=== PATIENT | male | born 1940 | race Caucasian/White ===

== ENCOUNTER 2016-06-27 10:41 | Day surgery (SDC) | payer MEDICARE ==
--- NOTE | ~2016-06-27 | EGD ---
EGD REPORT [facility] [address] [address] NAME: DEYVI LOCKWOOD : 40 STATUS : REG [facility] PAT#: [id number] AGE: 75 ADM/REG DATE : 06/27/16 MR#: [id number] REPORT SERV DATE: 06/27/16 DICTATED BY: ANDRADE GUPTA DATE: 06/27/16 REPORT STATUS : Draft TRANSCRIBED BY: [facility] DATE: 06/27/16 Endoscopy Center Patient Name: Deyvi Lockwood Date of : 1940 Attending MD: DANIELITO GUPTA MD Procedure Date No Time: 06/27/2016 Procedure: Upper GI endoscopy Indications: Follow-up of Triana's esophagus, Abnormal PET scan of the GI tract, Gastric lining lighting up when PET done for lung mass Referring MD: CRISTOBAL GARG Medicines: See the Anesthesia note for documentation of the administered medications Complications: No immediate complications. Estimated blood loss: Minimal. Procedure: Pre-Anesthesia Assessment: - ASA Grade Assessment: III - A patient with severe systemic disease. - Prior to the procedure, a History and Physical was performed, and patient medications and allergies were reviewed. The patient's tolerance of previous anesthesia was also reviewed. The risks and benefits of the procedure and the sedation options and risks were discussed with the patient. All questions were answered, and informed consent was obtained. Prior Anticoagulants: The patient has taken no previous anticoagulant or antiplatelet agents. After reviewing the risks and benefits, the patient was deemed in satisfactory condition to undergo the procedure. After obtaining informed consent, the endoscope was passed under direct vision. Throughout the procedure, the patient's blood pressure, pulse, and oxygen saturations were monitored continuously. The GIF IT Q160 [id number] was introduced through the mouth, and advanced to the second part of duodenum. The upper GI endoscopy was accomplished without difficulty. The patient tolerated the procedure well. Findings: The examined duodenum was normal. The entire examined stomach was normal. Biopsy with a cold jumbo forceps was performed for histology. The cardia and gastric fundus were normal on retroflexion. There were esophageal mucosal changes consistent with long-segment Triana's esophagus present in the lower third of the esophagus. The EGD REPORT [address] [address] NAME: DEYVI LOCKWOOD : 40 STATUS : REG [facility] PAT#: [id number] AGE: 75 ADM/REG DATE : 06/27/16 MR#: [id number] REPORT SERV DATE: 06/27/16 DICTATED BY: ANDRADE GUPTA DATE: 06/27/16 REPORT STATUS : Draft TRANSCRIBED BY: [employer] DATE: 06/27/16 maximum longitudinal extent of these mucosal changes was 6 cm in length. Mucosa was biopsied with a cold forceps for histology in 4 quadrants at intervals of 2 cm in the lower third of the esophagus. A total of 4 specimen bottles were sent to pathology. Impression: - Normal examined duodenum. - Normal stomach. Biopsied. - Esophageal mucosal changes consistent with long-segment Triana's esophagus. Biopsied. Recommendation: - Patient has a contact number available for emergencies. The signs and symptoms of potential delayed complications were discussed with the patient. Return to normal activities tomorrow. Written discharge instructions were provided to the patient. - Regular diet. - Discharge patient to home. - Continue present medications. - Await pathology results. - Repeat the upper endoscopy in 3 years for surveillance. Procedure Code(s): --- Professional --- 55450, Esophagogastroduodenoscopy, flexible, transoral; with biopsy, single or multiple Diagnosis Code(s): --- Professional --- K22.70, Triana's esophagus without dysplasia R93.3, Abnormal findings on diagnostic imaging of other parts of digestive tract CPT copyright 2013 [employer]. All rights reserved. The codes documented in this report are preliminary and upon celebrity chef entrepreneur media personality review may be revised to meet current compliance requirements. DANIELITO GUPTA MD 06/27/2016 12:27 PM This report has been signed electronically. Number of Addenda: 0 Note Initiated On: 06/27/2016 11:57 AM Scope Withdrawal Time 0 hours 0 minutes 0 seconds [id number] [id number]
[~2016-06-27 10:41] MED LIST: AMARYL4 PO; ASA5GR PO; ASAB PO; ASCRIPTIN PO; CLARIT10 PO; CORDARONE PO; CRESTOR10 PO; CYANO1000T PO; DIABETA5 PO; FISH-EPA1000 MG PO; FLONASE NAS; FOLIC PO; Folic Acid PO; GLUCOPHAGE1000 MG PO; HYDROCHLOROT25 MG PO; LIPITOR20 PO; LOTE20 PO; LOTENSIN HCT1 TA1 PO; PLAVIX PO; POLY-IRON PO; PRILO PO; STARLIX120 PO; STARLIX60 PO; TOPXL100 PO; TOPXL50 PO; TRAVATAN Z0.004 % OPH; TRICOR145 PO; [UNRECOGNIZED DRUG - REMARK] PO; [UNRECOGNIZED DRUG - REMARK] PO
== END 2016-06-27 23:59 | disposition home or self-care (01) ==
LOC: DMU 10:41
PROVIDERS: Internal Medicine Gastroenterology
PROC: 0DB38ZX Excision of Lower Esophagus, Via Natural or Artificial Opening Endoscopic, Diagnostic (ICD-10-PCS; 2016-06-27)
PROC: 0DB68ZX Excision of Stomach, Via Natural or Artificial Opening Endoscopic, Diagnostic (ICD-10-PCS; principal; 2016-06-27 13:00)
DX: K22.70 Barrett's esophagus without dysplasia (principal); D64.9 Anemia, unspecified; R93.3 Abnormal findings on diagnostic imaging of other parts of digestive tract; F17.210 Nicotine dependence, cigarettes, uncomplicated; I73.9 Peripheral vascular disease, unspecified; E78.00 Pure hypercholesterolemia, unspecified; I10 Essential (primary) hypertension; K21.9 Gastro-esophageal reflux disease without esophagitis; E11.9 Type 2 diabetes mellitus without complications; F32.9 Major depressive disorder, single episode, unspecified; F41.9 Anxiety disorder, unspecified; I25.10 Atherosclerotic heart disease of native coronary artery without angina pectoris; Z95.1 Presence of aortocoronary bypass graft; Z88.0 Allergy status to penicillin; Z79.899 Other long term (current) drug therapy; Z79.82 Long term (current) use of aspirin; Z79.51 Long term (current) use of inhaled steroids
CPT/HCPCS: 82962; 88305

== ENCOUNTER 2016-07-03 06:23 | Inpatient (IN) | payer MEDICARE ==
[2016-06-28 14:21] LABS: BASOPHILS 0.3 %; BASOPHILS ABSOLUTE 0.02 10/3/uL (0.0-0.16); EOSINOPHILS 3.1 %; EOSINOPHILS ABSOLUTE 0.22 10/3/uL (0.0-0.53); HEMATOCRIT 31.6 % (40.0-51.0); HEMOGLOBIN 9.8 g/dL (13.6-17.8); IMMATURE GRANULOCYTES 0.1 %; IMMATURE GRANULOCYTES ABSOLUTE 0.01 10/3/uL (0.0-0.11); LYMPHOCYTES 26.1 %; LYMPHOCYTES ABSOLUTE 1.88 10/3/uL (0.67-4.30); MEAN CORPUSCULAR HEMOGLOB 25.4 pg (26.0-34.0); MEAN CORPUSCULAR VOLUME 81.9 fL (80-100); MEAN PLATELET VOLUME 8.5 fL (9.2-13.0); MONOCYTES ABSOLUTE 0.43 10/3/uL (0.21-1.20); NEUTROPHILS 64.4 %; NEUTROPHILS ABSOLUTE 4.63 10/3/uL (2.02-8.40); PLATELET COUNT 274 10/3/uL (150-400); RBC DISTRIBUTION WIDTH 15.5 % (12.0-16.0); RED CELL COUNT 3.86 10/6/uL (4.7-6.1); WHITE BLOOD CELLS 7.2 10/3/uL (4.5-10.5)
[2016-06-28 14:22] LABS: MANUAL DIFF NO %
[2016-06-28 14:31] LABS: BUN (BLOOD UREA NITROGEN) 20 MG/DL (6-23); CALCIUM, SERUM 8.4 MG/DL (8.5-10.4); CHLORIDE, SERUM 103 MMOL/L (96-112); CO2 (CARBON DIOXIDE) 29 MMOL/L (24-34); CREATININE 1.59 MG/DL (0.70-1.30); GFR AFRICAN AMERICAN 48 ML/MIN (>=60); GFR NON AFRICAN AMERICAN 42 ML/MIN (>=60); INTERNATIONAL NORMAL RATI 1.1 UNITS (-); POTASSIUM, SERUM 4.4 MMOL/L (3.5-5.3); PROTIME (NOT ORD) 13.9 SEC (12.0-14.5); SODIUM, SERUM 138 MMOL/L (135-148)
[2016-06-28 14:32] LABS: GLUCOSE, SERUM 159 MG/DL (60-99)
[2016-06-28 15:28] LABS: ASCORBIC ACID (UR NOT ORDER) NEG (NEG); BILIRUBIN, URINE NEGATIVE (NEG); KETONE, URINE NEGATIVE (NEG); LEUKOCYTE ESTERASE(NOT OR NEG (NEG); WBC (NOT ORDERED) (RFLEX) 2 (0-5)
--- NOTE | ~2016-07-03 | OP ---
Record Of Operation [facility] [address] [place]. [address] NAME: DEYVI LOCKWOOD : 40 STATUS : ADM IN PAT#: [id number] AGE: 75 ADM/REG DATE : 07/03/16 MR#: [id number] REPORT SERV DATE: 07/03/16 DICTATED BY: JOSUÉ BARBOZA JR. 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 NAME OF OPERATION: Bronchoscopy, right thoracoscopy with right lower lobectomy with en bloc resection of central portion of right hemidiaphragm, major fissure, and segments of right upper and middle lobes; primary closure of right hemidiaphragm; complete mediastinal lymph node dissection, julianna stations 7, 9, 11R; and intercostal nerve block. SURGEON: Josué Barboza M.D. RESIDENT SURGEON: Ronald Izquierdo MD. CORK GRINDER: Jesse Cerna. ANESTHESIA: General endotracheal. FINDINGS: The patient was noted to have extremely large tumor occupying the right lower lobe. It was adherent to the diaphragm with suspicion of the tumor possibly involving the right hemidiaphragm. We could not separate the two safely, so we took a section of right hemidiaphragm full-thickness. It was repaired primarily with Ethibond sutures. The tumor also appeared to be involving the fissure. We took the major fissure with segments of the middle lobe with portions of the middle lobe and right upper lobe attached to it to ensure adequate margins. The lung had a generalized fibrotic nature to it. Mediastinal lymph nodes were enlarged but did not have any obvious striking features to them. Final pathology is pending, but gross inspection demonstrated our margins to be widely free of tumor. DETAILS OF OPERATION: After adequate general anesthesia, the patient was intubated. Bronchoscopy was performed noting no endobronchial lesions. There were no contraindications to resection. Mucus secretions were evacuated. A left-sided double-lumen endotracheal tube was then placed. The patient was then positioned in the left lateral decubitus position and the right chest was prepped and draped in routine sterile fashion. A small incision was made overlying the lower intercostal space. A separate anterior trocar incision was also made. Through these two incision sites, above findings were noted. The tumor was not invading the chest wall, but was invading the hemidiaphragm. We eventually felt that we could not separate the two, so we took a section of the diaphragm with the tumor. This was primarily repaired with Ethibond suture in a horizontal mattress fashion. Multiple Record Of Operation [place] [id number] [facility] [place]. [address] NAME: DEYVI LOCKWOOD : 40 STATUS : ADM IN [facility]#: [id number] AGE: 75 ADM/REG DATE : 07/03/16 MR#: [id number] REPORT SERV DATE: 07/03/16 DICTATED BY: JOSUÉ BARBOZA JR. DATE: 07/03/16 REPORT STATUS : Draft TRANSCRIBED BY: VIVIANE DATE: 07/03/16 interrupted sutures were required. Cor-Knot was used to secure the sutures. Attention was then placed to the inferior pulmonary ligament, where it was taken down. The inferior pulmonary vein was identified along with superior pulmonary vein. The inferior pulmonary vein was transected with a vascular stapler. The bronchus was identified, dissected out, and divided with a RADHA stapler. Tumor appeared to be involving possibly the fissure. It was not well defined. There was a lot of thickness and abnormalities in this region. We took a stapler across the middle and upper lobes, removing the entire fissure. Tissue reinforcements utilized across this entire staple line. Hemostasis was obtained. The specimen was removed through the anterior trocar site. We did have to spread the ribs to get the specimen out. It was extremely large. Gross inspection demonstrated margins to be negative. Lungs were reinflated, noting our staple line to be intact with adequate hemostasis. Nodes from the subcarinal, hilar, and inferior pulmonary ligament regions were removed. Intercostal nerve block was performed. A 32-[place] chest tube was then placed. Then, trocar incisions were closed with running Vicryl sutures. Skin was closed with running monofilament suture. A Dermabond dressing was applied. The procedure was terminated at this point. The patient tolerated the procedure well, and taken back to recovery room in stable condition. CEDRICK/VIVIANE Josué Barboza Jr., M.D. / [id number] CC: Dorita Alejandro Jr., M.D. Glen Boyd, M.D. Chad E. Paxson, DO Alexander Stratienko, M.D.
[2016-07-03 13:07] LABS: BASOPHILS 0.3 %; BASOPHILS ABSOLUTE 0.04 10/3/uL (0.0-0.16); EOSINOPHILS 1.3 %; EOSINOPHILS ABSOLUTE 0.15 10/3/uL (0.0-0.53); HEMATOCRIT 31.5 % (40.0-51.0); HEMOGLOBIN 9.8 g/dL (13.6-17.8); IMMATURE GRANULOCYTES 0.3 %; IMMATURE GRANULOCYTES ABSOLUTE 0.03 10/3/uL (0.0-0.11); LYMPHOCYTES 18.9 %; LYMPHOCYTES ABSOLUTE 2.19 10/3/uL (0.67-4.30); MEAN CORPUS HGB CONC 31.1 g/dL (32.0-36.0); MEAN CORPUSCULAR HEMOGLOB 26.2 pg (26.0-34.0); MEAN CORPUSCULAR VOLUME 84.2 fL (80-100); MEAN PLATELET VOLUME 8.3 fL (9.2-13.0); MONOCYTES 1.9 %; MONOCYTES ABSOLUTE 0.22 10/3/uL (0.21-1.20); NEUTROPHILS 77.3 %; NEUTROPHILS ABSOLUTE 8.97 10/3/uL (2.02-8.40); PLATELET COUNT 272 10/3/uL (150-400); RBC DISTRIBUTION WIDTH 15.6 % (12.0-16.0); RED CELL COUNT 3.74 10/6/uL (4.7-6.1)
[2016-07-03 13:09] LABS: MANUAL DIFF NO %; WHITE BLOOD CELLS 11.6 10/3/uL (4.5-10.5)
[2016-07-03 13:19] LABS: BUN (BLOOD UREA NITROGEN) 20 MG/DL (6-23); CALCIUM, SERUM 8.2 MG/DL (8.5-10.4); CHLORIDE, SERUM 104 MMOL/L (96-112); CO2 (CARBON DIOXIDE) 28 MMOL/L (24-34); CREATININE 1.51 MG/DL (0.70-1.30); GFR AFRICAN AMERICAN 52 ML/MIN (>=60); GFR NON AFRICAN AMERICAN 45 ML/MIN (>=60); GLUCOSE, SERUM 212 MG/DL (60-99); POTASSIUM, SERUM 5.1 MMOL/L (3.5-5.3); SODIUM, SERUM 139 MMOL/L (135-148)
[2016-07-03 13:45] LABS: BE (BASE EXCESS) -5.5 MEQ/L (0 +/- 2.5); CARBOXYHEMOGLOBIN 0.8 % (0-3); HCO3 (ACTUAL BICARBONATE) 25.2 MEQ/L (23-27); HEMOBLOGIN CONTENT 11.2 G/DL (14-18); INSTRUMENT SERIAL # 8083; METHEMOGLOBIN 0.5 % (0-3); O2 CONTENT 15.7 VOL% (18-24); PCO2 (CO2 TENSION) 81 MMHG (35-45); PO2 (O2 TENSION) 157 MMHG (79-93); SAMPLE Arterial; pH 7.11 (7.37-7.43)
[2016-07-03 14:55] LABS: BE (BASE EXCESS) -2.4 MEQ/L (0 +/- 2.5); BIPAP 14/6 cm.H2O; CARBOXYHEMOGLOBIN 0.2 % (0-3); HCO3 (ACTUAL BICARBONATE) 22.7 MEQ/L (23-27); HEMOBLOGIN CONTENT 10.4 G/DL (14-18); INSTRUMENT SERIAL # 11843; METHEMOGLOBIN 0.4 % (0-3); O2 CONTENT 14.7 VOL% (18-24); OPERATOR ID 19104; PCO2 (CO2 TENSION) 40 MMHG (35-45); PO2 (O2 TENSION) 165 MMHG (79-93); SAMPLE Arterial; pH 7.37 (7.37-7.43)
[2016-07-04 05:54] LABS: BASOPHILS 0.1 %; BASOPHILS ABSOLUTE 0.01 10/3/uL (0.0-0.16); EOSINOPHILS 0 %; HEMOGLOBIN 8.4 g/dL (13.6-17.8); IMMATURE GRANULOCYTES 0.2 %; IMMATURE GRANULOCYTES ABSOLUTE 0.02 10/3/uL (0.0-0.11); LYMPHOCYTES 12.3 %; LYMPHOCYTES ABSOLUTE 1.17 10/3/uL (0.67-4.30); MEAN CORPUS HGB CONC 31.2 g/dL (32.0-36.0); MEAN CORPUSCULAR HEMOGLOB 25.5 pg (26.0-34.0); MEAN PLATELET VOLUME 8.7 fL (9.2-13.0); MONOCYTES ABSOLUTE 0.57 10/3/uL (0.21-1.20); NEUTROPHILS 81.4 %; NEUTROPHILS ABSOLUTE 7.78 10/3/uL (2.02-8.40); PLATELET COUNT 300 10/3/uL (150-400); RBC DISTRIBUTION WIDTH 15.7 % (12.0-16.0); WHITE BLOOD CELLS 9.6 10/3/uL (4.5-10.5)
[2016-07-04 05:57] LABS: HEMATOCRIT 26.9 % (40.0-51.0); MANUAL DIFF NO %; MEAN CORPUSCULAR VOLUME 81.5 fL (80-100)
[2016-07-04 06:08] LABS: CALCIUM, SERUM 7.9 MG/DL (8.5-10.4); CHLORIDE, SERUM 104 MMOL/L (96-112); CO2 (CARBON DIOXIDE) 25 MMOL/L (24-34); CREATININE 1.76 MG/DL (0.70-1.30); GFR AFRICAN AMERICAN 43 ML/MIN (>=60); GFR NON AFRICAN AMERICAN 37 ML/MIN (>=60); GLUCOSE, SERUM 229 MG/DL (60-99); POTASSIUM, SERUM 4.8 MMOL/L (3.5-5.3); SODIUM, SERUM 139 MMOL/L (135-148)
[2016-07-04 06:27] LABS: BUN (BLOOD UREA NITROGEN) 26 MG/DL (6-23)
[2016-07-04] MEDS ORDERED: PCET PO (09:37)
== END 2016-07-05 11:34 | disposition home health service (06) | DRG 165 ==
LOC: SDC/OF 06:23 → PACU 12:40 → 5NO 16:12
PROVIDERS: Thoracic Surgery (Cardiothoracic Vascular Surgery)
PROC: 0BJ08ZZ Inspection of Tracheobronchial Tree, Via Natural or Artificial Opening Endoscopic (ICD-10-PCS; principal; 2016-07-03 08:15)
PROC: 3E0T3BZ Introduction of Anesthetic Agent into Peripheral Nerves and Plexi, Percutaneous Approach (ICD-10-PCS; principal; 2016-07-03 08:15)
PROC: [UNRECOGNIZED PROCEDURE] (principal; 2016-07-03 08:15)
PROC: 0BTF4ZZ Resection of Right Lower Lung Lobe, Percutaneous Endoscopic Approach (ICD-10-PCS; principal; 2016-07-03 08:15)
PROC: 07B74ZZ Excision of Thorax Lymphatic, Percutaneous Endoscopic Approach (ICD-10-PCS; principal; 2016-07-03 08:15)
DX: C34.31 Malignant neoplasm of lower lobe, right bronchus or lung (principal); J44.9 Chronic obstructive pulmonary disease, unspecified; J84.10 Pulmonary fibrosis, unspecified; E11.9 Type 2 diabetes mellitus without complications; I10 Essential (primary) hypertension; D63.8 Anemia in other chronic diseases classified elsewhere; Z95.1 Presence of aortocoronary bypass graft; F17.210 Nicotine dependence, cigarettes, uncomplicated; Z79.84 Long term (current) use of oral hypoglycemic drugs
CPT/HCPCS: 36415; 71010; 71020; 80048; 81001; 82805; 82962; 83036; 85025; 85610; 86850; 86900; 86901; 87641; 88305; 88307; 88309; 88313; 88342; 93005; 94640; 94660; 94770; A9270-GY; J0360; J0690; J2250; J2370; J2405; J2710; J2795; J3010